=== PATIENT | female | born 1995 | race Two or more races ===

== ENCOUNTER 2019-03-16 17:37 | Emergency (ER) | payer BC ==
[~2019-03-16] VITALS: Ht 157.5 cm; Wt 46.3 kg
--- NOTE | 2019-03-16 17:56 | NUR ---
Dr Harrington at the bedside for MSE.
--- NOTE | 2019-03-16 18:05 | NUR ---
Patient discharged to home in stable conditon. Written and verbal after care instructions given. Patient verbalizes understanding of instructions.
[2019-03-16 18:06] VITALS: BP 128/83
== END 2019-03-16 18:07 | disposition home or self-care (01) ==
LOC: ER 17:46
DX: J06.9 Acute upper respiratory infection, unspecified (principal); M79.10 Myalgia, unspecified site
CPT/HCPCS: A4663